=== PATIENT | male | born 1975 | race Caucasian/White ===

== ENCOUNTER 2020-11-28 08:14 | Emergency (ER) | payer BC ==
[~2020-11-28] VITALS: Ht 157.5 cm; Wt 79.8 kg
[2020-11-28 08:31] VITALS: Ht 157.5 cm; Wt 79.8 kg
[2020-11-28 09:53] LABS: BASOPHIL % 0.2 % (0.2-1.5); PLATELET COUNT 286 x10^3mcL (152-348); RED CELL DISTRIBUTION WIDTH 12.9 % (12.1-16.2)
[2020-11-28 10:25] LABS: ALBUMIN 3.4 g/dL (3.4-5.0); ALKALINE PHOSPHATASE 85 U/L (46-116); ALT/SGPT 40 U/L (16-63); AST/SGOT 16 U/L (15-37); BILIRUBIN TOTAL 0.2 mg/dL (0.20-1.00); CALCIUM 8.6 mg/dL (8.5-10.1); CARBON DIOXIDE 27.3 mmol/L (21-32); CHLORIDE SERUM 103 mmol/L (98-107); CREATININE SERUM 0.8 mg/dL (0.7-1.3); GFR1 > 60 mL/min; POTASSIUM SERUM 4.3 mmol/L (3.5-5.1); SODIUM SERUM 135 mmol/L (136-145); TOTAL PROTEIN, SERUM 7.1 g/dL (6.4-8.2)
[2020-11-28 10:30] LABS: microscopic required? NO
[2020-11-28 10:30] LABS: GLUCOSE SERUM 456 mg/dL (74-106)
[2020-11-28 10:52] LABS: urine erythrocyte NEGATIVE (NEGATIVE)
[2020-11-28 14:07] VITALS: BP 122/76
== END 2020-11-28 14:07 | disposition home or self-care (01) ==
LOC: ED 08:14
PROVIDERS: Emergency Medicine
DX: E11.9 Type 2 diabetes mellitus without complications (principal); R42 Dizziness and giddiness; R11.0 Nausea; R51.9 Headache, unspecified
CPT/HCPCS: 82962; J7030; J8597; Q0162